=== PATIENT | female | born 1995 | race American Indian/Alaskan Native ===

== ENCOUNTER 2017-01-30 17:52 | Emergency (ER) | payer MEDICAID, OTHER ==
[2017-01-30 18:13] VITALS: BP 132/91
--- NOTE | 2017-01-30 18:33 | EDM.PDOC ---
ED HPI GENERAL MEDICAL PROBLEM - General Chief Complaint: Allergic Reaction Stated Complaint: POSSIBLE ALLERGIC REACTION TO AMOXICILLIAN Time Seen by Provider: 01/30/17 18:15 Source of Information: Reports: Patient History Limitations: Reports: No Limitations - History of Present Illness INITIAL COMMENTS - FREE TEXT/NARRATIVE: 21-year-old female has an infected tooth on the right mandible, seen and started on amoxicillin yesterday. After taking the second dose this afternoon she developed widespread itching, erythema, and a rash but no hives. No mucosal swelling or shortness of breath. She has never reacted to penicillin in the past and has no other allergies. She has not taken any Benadryl or other medication. 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: Social & Family History - Tobacco Use Smoking Status *Q: Current Every Day Smoker Years of Tobacco use: 3 Packs/Tins Daily: 0.5 - Caffeine Use Caffeine Use: Reports: Energy Drinks - Alcohol Use Days Per Week of Alcohol Use: 1 Number of Drinks Per Day: 2 Total Drinks Per Week: 2 - Recreational Drug Use Recreational Drug Use: No ED ROS ALLERGIC REACTION - Review of Systems Review Of Systems: See Below Constitutional: Denies: Fever, Chills HEENT: Reports: Dental Pain Respiratory: Denies: Shortness of Breath, Wheezing, Cough GI/Abdominal: Denies: Nausea, Vomiting Skin: Reports: Pruritis, Erythema Neurological: Denies: Headache Psychiatric: Reports: No Symptoms ED EXAM GENERAL NO PERIP PULSE - Physical Exam Exam: See Below Exam Limited By: No Limitations General Appearance: Alert, No Apparent Distress (Patient looks uncomfortable but she is not distressed) Eye Exam: Bilateral Eye: Normal Inspection Throat/Mouth: Normal Inspection Head: Atraumatic. No: Facial Swelling Respiratory/Chest: No Respiratory Distress, Lungs Clear Cardiovascular: Regular Rate, Rhythm Skin Exam: Warm, Dry, Erythema (Patient has widespread erythema of the hands since and trunk, blanching. No hive information. She is persistently scratching because of the itching) Course - Vital Signs Last Recorded V/S: Last Vital Signs Temp 98.6 F 01/30/17 18:10 Pulse 87 01/30/17 18:10 Resp 14 01/30/17 18:10 BP 132/91 H 01/30/17 18:10 Pulse Ox 96 01/30/17 18:10 - Re-Assessments/Exams Free Text/Narrative Re-Assessment/Exam: 01/30/17 18:29 In all likelihood this is a reaction to the penicillin family. I wanted to give her an injection of Solu-Medrol but she refused any shots. She'll stop the amoxicillin, also bladder with some Benadryl to take 25-50 mg every 4-6 hours, place her on prednisone 50 mg daily for the next 3-6 days, and change her antibiotic to clindamycin. She can return anytime if worsening. She will inform her provider of a likely penicillin allergy. Departure - Departure Time of Disposition: 18:43 Disposition: Home, Self-Care 01 Condition: Good Clinical Impression: Drug allergy, antibiotic - Discharge Information Instructions: Allergies Referrals: PCP,None [Primary Care Provider] - Forms: ED Department Discharge Care Plan Goals: Stop amoxicillin and inform your regular clinic or doctor and any future medical visits of a penicillin allergy. Stop amoxicillin, start clindamycin 2 pills 3 times a day. Take 5 pills of prednisone this evening with food, and 5 pills each morning with breakfast for at least 2 additional days and up to 5 days if needed. Benadryl as directed for itching. Return anytime if you feel you 're worsening despite treatment.
== END 2017-01-30 18:43 | disposition home or self-care (01) ==
LOC: JP.ED 17:52
DX: L25.8 Unspecified contact dermatitis due to other agents (principal); T36.0X5A Adverse effect of penicillins, initial encounter; Z88.1 Allergy status to other antibiotic agents; F17.210 Nicotine dependence, cigarettes, uncomplicated
CPT/HCPCS: 99283

== ENCOUNTER 2017-06-23 22:30 | Emergency (ER) | payer SELFPAY ==
[2017-06-23 22:43] VITALS: BP 136/75
--- NOTE | 2017-06-24 00:29 | EDM.PDOC ---
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 She had a positive home test sometime in the past. Check she has an OB appointment for tomorrow. She said for the past one or 2 hours she's had some bleeding and spotting kind of like a. Actually she's had spotting for the past couple of days. She also had some mild cramps. 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 ED EXAM - Physical Exam Exam: See Below Exam Limited By: No Limitations General Appearance: Alert, WD/WN, No Apparent Distress GI/Abdominal Exam: Soft, Non-Tender, Other (Uterus is not palpable. Pelvic exam not indicated) Course - Vital Signs Last Recorded V/S: Last Vital Signs Temp 36.6 C 06/23/17 22:44 Pulse 84 06/23/17 22:44 Resp 16 06/23/17 22:44 BP 136/75 06/23/17 22:44 Pulse Ox 99 06/23/17 22:44 - Orders/Labs/Meds Labs: Laboratory Tests 06/23/17 Range/Units 23:35 HCG, Quant 46063 H (0-6) mIU/mL - Re-Assessments/Exams Free Text/Narrative Re-Assessment/Exam: 06/24/17 00:26 HCG of 80,000 was noted. This was discussed with the patient Departure - Departure Time of Disposition: 00:26 Disposition: Home, Self-Care 01 Condition: Fair Clinical Impression: Threatened - Discharge Information Referrals: Nancy Chung NP [Primary Care Provider] - Additional Instructions: Follow-up with your Dr. as planned. Your Dr. may or may not do an ultrasound. Today the quantitative beta hCG was 80,000. This is a good number. Your Dr. may repeat this in a couple of days to be sure it's going up and that's a good sign of a healthy . If the level is going down Y that's a bad sign. In the meantime if you start having severe bleeding or cramping then you should return to the emergency department
== END 2017-06-24 00:37 | disposition home or self-care (01) ==
LOC: JP.ED 22:30
DX: O20.0 Threatened abortion (principal); O99.331 Smoking (tobacco) complicating pregnancy, first trimester; Z3A.08 8 weeks gestation of pregnancy; F17.210 Nicotine dependence, cigarettes, uncomplicated; Z88.1 Allergy status to other antibiotic agents
CPT/HCPCS: 36415; 84702; 99284

== ENCOUNTER 2023-07-13 11:38 | Emergency (ER) | payer MEDICAID ==
[2023-07-13 12:20] LABS: BASOPHILS ABSOLUTE AUTO 0.08 K/uL (0.00-0.10); BASOPHILS PERCENT AUTO 1.1 % (0.1-1.3); EOSINOPHILS PERCENT AUTO 0.3 % (0.0-5.4); HEMATOCRIT 37.7 % (34.3-46.0); HEMOGLOBIN 12.3 g/dL (11.2-15.5); IMMATURE GRAN ABSOLUTE AUTO 0.03 K/uL (0.00-0.23); IMMATURE GRAN PERCENT AUTO 0.4 % (0.0-0.7); LYMPHOCYTES ABSOLUTE AUTO 1.21 K/uL (0.8-3.3); LYMPHOCYTES PERCENT AUTO 16.6 % (11.4-47.7); MEAN CORPUSCULAR HEMOGLOBIN 23.2 pg (31.6-35.5); MEAN CORPUSCULAR HGB CONC 32.6 g/dL (31.6-35.5); MONOCYTES ABSOLUTE AUTO 0.33 K/uL (0.20-0.90); MONOCYTES PERCENT AUTO 4.5 % (3.3-12.6); NEUTROPHILS ABSOLUTE AUTO 5.64 K/uL (1.0-7.6); NEUTROPHILS PERCENT AUTO 77.1 % (40.0-78.1); PLATELET COUNT,PLT 431 K/uL (130-375); RED BLOOD CELL COUNT 5.31 M/uL (3.77-5.24); WHITE BLOOD CELL COUNT,WBC 7.3 K/uL (3.2-11.0)
[2023-07-13] MEDS: Sodium Chloride 0.9% 1,000 ML IV SCH (12:23)
[2023-07-13] MEDS: LORazepam 2 MG/ML SDV IVPUSH ONE (12:23)
[2023-07-13 12:24] LABS: EOSINOPHILS ABSOLUTE AUTO 0.02 K/uL (0.00-0.40)
[2023-07-13 12:25] VITALS: BP 137/98; PULSE 99
[2023-07-13 12:34] LABS: CALCIUM 8.3 mg/dL (8.5-10.1); CREATININE 0.6 mg/dL (0.6-1.0); EST CRCL DRUG DOSING (CG) 116.5 mL/min; POTASSIUM,K 3.9 mmol/L (3.6-5.2)
[2023-07-13 12:36] LABS: ANION GAP 17.9 mmol/L (5.0-14.0)
== END 2023-07-13 13:17 | disposition home or self-care (01) ==
LOC: JP.ED 11:38
DX: R11.2 Nausea with vomiting, unspecified (principal); F17.210 Nicotine dependence, cigarettes, uncomplicated; Z88.0 Allergy status to penicillin
CPT/HCPCS: 36415; 80048; 85025; 96361; 96374; 99283; 99284-25; J2060; J7030